=== PATIENT | female | born 1970 | race Caucasian/White ===

== ENCOUNTER 2022-04-02 15:59 | Day surgery (SDCO) | payer OTHER ==
[~2022-04-02] VITALS: Ht 157.5 cm; Wt 61.3 kg
[2022-04-02 16:29] LABS: BASOPHIL 0.8 % (0-2); EOSINOPHIL 2.1 % (0-5); HCT 42.1 % (37.0-47.0); HGB 14.5 g/dl (12.5-16.0); LYMPHOCYTE 36.5 % (15-48); MCH 33.7 pg (25.0-31.0); MCHC 34.4 g/dL (32.0-36.0); MCV 97.9 fL (78.0-100.0); MONOCYTE 6.9 % (0-12); MPV 8.8 fL (6.0-9.5); NEUTROPHIL 53.5 % (41-80); NRBC 0; PLT 327 K/uL (150-400); RDW 13.7 % (11.5-14.0); WBC 9.5 K/uL (4.0-10.5)
[2022-04-02 16:35] LABS: INR 1.03 (0.9-1.2); PROTHROMBIN TIME 12.9 SECONDS (11.8-13.4); PTT 32.2 SECONDS (24.4-34.7)
[2022-04-02 16:57] LABS: ALBUMIN 4.7 g/dL (3.4-5.0); ALKALINE PHOSHATASE 95 U/L (46-116); ALT 24 U/L (14-59); AST 29 U/L (15-37); BILIRUBIN - TOTAL 0.7 mg/dL (0.2-1.0); BUN 13 mg/dL (7-18); CHLORIDE 101 mmol/L (98-107); CO2 (BICARBONATE) 26 mmol/L (21-32); CREATININE 1.08 mg/dL (0.51-0.95); GLOBULIN (CALCULATION) 3.6 g/dL; GLUCOSE 91 mg/dL (74-106); POTASSIUM 4.2 mmol/L (3.5-5.1); TOTAL PROTEIN 8.3 g/dL (6.4-8.2)
[2022-04-02 17:21] LABS: BILIRUBIN NEGATIVE (NEGATIVE); BLOOD NEGATIVE Ery/uL (NEGATIVE); CLARITY CLEAR (CLEAR); COLOR YELLOW (YELLOW); GLUCOSE (U) NORMAL (NORMAL); LEUKOCYTES NEGATIVE Leu/uL (NEGATIVE); NITRITE NEGATIVE (NEGATIVE); PROTEIN NEGATIVE (NEGATIVE); SPECIFIC GRAVITY <=1.005 (1.001-1.030)
[2022-04-02 20:57] LABS: CHOLESTEROL 235 mg/dL (<200); HDL 75 mg/dL (40-60); LDL - DIRECT 147 mg/dL (<100); TRIGLYCERIDES 106 mg/dL (<150)
[2022-04-03] MEDS ORDERED: SYNTHROID100 MCG PO (00:03)
[2022-04-03 08:49] LABS: BASOPHIL 0.9 % (0-2); EOSINOPHIL 4.9 % (0-5); HCT 37.8 % (37.0-47.0); LYMPHOCYTE 38.4 % (15-48); MCH 34.4 pg (25.0-31.0); MCHC 34.4 g/dL (32.0-36.0); MONOCYTE 7.3 % (0-12); MPV 8.7 fL (6.0-9.5); NEUTROPHIL 48.3 % (41-80); NRBC 0; PLT 251 K/uL (150-400); RBC 3.78 M/uL (4.20-5.40); RDW 13.7 % (11.5-14.0); WBC 6.6 K/uL (4.0-10.5)
[2022-04-03 09:16] LABS: BUN/CREAT RATIO (CALC) 10.2 RATIO; CREATININE 1.08 mg/dL (0.51-0.95); POTASSIUM 4.7 mmol/L (3.5-5.1)
--- NOTE | 2022-04-03 15:52 | NUR ---
04/03/22 Patient left AMA
== END 2022-04-03 13:00 | disposition home or self-care (01) ==
LOC: FER 15:59 → FTCU 17:42
PROVIDERS: Emergency Medicine; Nurse Practitioner Acute Care; ADMIT Internal Medicine
DX: I20.0 Unstable angina (principal); E06.3 Autoimmune thyroiditis; L93.0 Discoid lupus erythematosus; K90.0 Celiac disease; R00.1 Bradycardia, unspecified; E78.5 Hyperlipidemia, unspecified; F17.210 Nicotine dependence, cigarettes, uncomplicated; Z20.822 Contact with and (suspected) exposure to COVID-19; Z82.49 Family history of ischemic heart disease and other diseases of the circulatory system
CPT/HCPCS: 36415; 71045; 80048; 80053; 80061; 81003; 82553; 83036; 84443; 84484; 85025; 85610; 85730; 93005; G0378; J1644; J7030; U0002